=== PATIENT | female | born 1995 | race Hispanic/Latino ===

== ENCOUNTER 2017-09-30 10:35 | Day surgery (SDC) | payer OTHER ==
[2017-09-30] MEDS ORDERED: dexameTHASONE 4 MG/ML 1ML VIAL (J1100) IV (10:45)
[2017-09-30 11:58] LABS: CONTROL LINE UCG INT CTR LINE PRESENT; URINE PREG TEST NEGATIVE (NEGATIVE)
[2017-09-30] MEDS: LR 1,000 ML IV (12:01)
[2017-09-30] MEDS ORDERED: LIDOCAINE 2% INJ 100 MG/5 ML SDV (FOR ANES.) As Ordered (12:06)
[2017-09-30] MEDS ORDERED: SUCCINYLCHOLINE 100 MG/5 ML SYRINGE (J0330) As Ordered (12:06)
[2017-09-30] MEDS ORDERED: PROPOFOL 200 MG/20 ML VIAL As Ordered (12:06)
[2017-09-30] MEDS ORDERED: ROCURONIUM BROMIDE 50 MG/5 ML VIAL As Ordered (12:06)
[2017-09-30] MEDS ORDERED: fentaNYL 100 MCG/2 ML INJECTION (J3010) As Ordered ×2 (12:07→13:08)
[2017-09-30] MEDS ORDERED: MIDAZOLAM INJ 2 MG/2 ML VIAL (J2250) As Ordered (12:14)
[2017-09-30] MEDS ORDERED: ONDANSETRON 4MG/2ML VIAL (J2405) As Ordered (13:10)
[2017-09-30] MEDS: dexameTHASONE 4 MG/ML 1ML VIAL (J1100) IV (13:11)
[2017-09-30] MEDS ORDERED: fentaNYL 100 MCG/2 ML INJECTION (J3010) IV (14:00)
[2017-09-30] MEDS ORDERED: LR 1,000 ML IV ×2 (14:00)
[2017-09-30] MEDS: NORCO, ANEXSIA 5/325MG TABLET (HYDROcodone/ACETAMINOPHEN) PO (14:25)
[2017-09-30] MEDS: ONDANSETRON 4MG/2ML VIAL (J2405) IV (14:26)
== END 2017-09-30 15:24 | disposition home or self-care (01) ==
LOC: M SDC 10:35
DX: J35.01 Chronic tonsillitis (principal)
CPT/HCPCS: 42826

== ENCOUNTER 2017-10-04 21:14 | Emergency (ER) | payer OTHER ==
[2017-10-04 22:54] LABS: BASO # 0.1 10^3/uL (0.0-0.2); BASO % 0.3 % (0.0-1.0); EOS % 0.2 % (0.0-3.0); HEMATOCRIT 41.3 % (36.0-47.0); HEMOGLOBIN 13.9 g/dl (12.0-16.0); IMMATURE GRANULOCYTE # 0.1 10^3/uL (0-0); IMMATURE GRANULOCYTE % 0.4 % (0-0); LYMPH # 1.9 10^3/uL (1.5-6.5); LYMPH % 11.2 % (24.0-44.0); MEAN CORPUSCULAR HEMOGLOBIN 27.6 pg (27.0-33.0); MEAN CORPUSCULAR HGB CONC 33.7 g/dl (32.0-36.5); MEAN CORPUSCULAR VOLUME 81.9 fl (80.0-96.0); MONO # 1.4 10^3/uL (0.0-0.8); NEUTROPHILS # 13.8 10^3/uL (1.8-7.7); NEUTROPHILS % 79.9 % (36.0-66.0); PLATELET COUNT, AUTOMATED 419 10^3/uL (150-450); RED BLOOD COUNT 5.04 10^6/uL (4.00-5.40); RED CELL DISTRIBUTION WIDTH 12.6 % (11.5-14.5); WHITE BLOOD COUNT 17.3 10^3/uL (4.0-10.0)
[2017-10-04] MEDS: NS 1,000 ML IV (22:59)
[2017-10-04] MEDS: ONDANSETRON 4MG/2ML VIAL (J2405) IV (22:59)
[2017-10-04 23:09] LABS: KETONE, URINE AUTO RFX 2+ mg/dL (NEGATIVE); MUCUS, URINE RFX SMALL (NEGATIVE); RBC, URINE AUTO RFX 9 /HPF (0-3); SPECIFIC GRAVITY UR AUTO RFX 1.024 (1.002-1.035); SQUAM EPITHELIAL CELL UR AURFX 6 /HPF (0-6)
[2017-10-04 23:12] LABS: LEUKOCYTE ESTERASE UR AUTO RFX 2+ (NEGATIVE); NITRITE, URINE AUTO RFX POSITIVE (NEGATIVE); WBC, URINE AUTO RFX 25 /HPF (0-3)
[2017-10-04 23:19] LABS: ALBUMIN 4.2 GM/DL (3.2-5.2); ALBUMIN/GLOBULIN RATIO 0.98 (1.00-1.93); ALKALINE PHOSPHATASE 80 U/L (45-117); ALT/SGPT 42 U/L (12-78); ANION GAP 4 MEQ/L (8-16); AST/SGOT 26 U/L (7-37); BILIRUBIN,DIRECT 0.2 MG/DL (0.0-0.2); BILIRUBIN,TOTAL 0.7 MG/DL (0.2-1.0); BLOOD UREA NITROGEN 13 MG/DL (7-18); CALCIUM LEVEL 9.3 MG/DL (8.5-10.1); CARBON DIOXIDE LEVEL 29 MEQ/L (21-32); CHLORIDE LEVEL 102 MEQ/L (98-107); CREATININE FOR GFR 0.64 MG/DL (0.55-1.02); GLUCOSE, FASTING 105 MG/DL (70-100); POTASSIUM SERUM 4.5 MEQ/L (3.5-5.1); SODIUM LEVEL 135 MEQ/L (136-145); TOTAL PROTEIN 8.5 GM/DL (6.4-8.2)
[2017-10-04] MEDS ORDERED: ACETAMINOPHEN 325 MG TAB PO (23:30)
[2017-10-04] MEDS: CEPHALEXIN SUSP POWDER 250MG/5ML BTL 100ML PO (23:36)
== END 2017-10-05 00:10 | disposition home or self-care (01) ==
LOC: M ED 10-05 00:10
DX: G89.18 Other acute postprocedural pain (principal); N39.0 Urinary tract infection, site not specified
CPT/HCPCS: J2405